=== PATIENT | female | born 1995 | race Caucasian/White ===

== ENCOUNTER 2022-12-25 17:35 | Emergency (ER) | payer OTHER ==
[2022-12-25 18:00] VITALS: BP 129/76
--- NOTE | 2022-12-25 18:00 | ED Physician Documentation ---
PD HPI HEENT - Stated complaint Stated Complaint: ALLERGIC REACTION/ FACE SWELLING - Chief complaint Chief Complaint: Heent - History obtained from History obtained from: Patient - Additional information Additional information: On and off for quite some time she has noticed a sour taste near the left mandible. This came back tonight while eating fast food but also noticed some swelling near the posterior left mandible. Its not particularly painful. PD PAST MEDICAL HISTORY - Present Medications Home Medications: Ambulatory Orders Medication Instructions Recorded Confirmed Citalopram [CeleXA] 12/25/22 - Allergies Allergies/Adverse Reactions: Allergies Allergy/AdvReac Type Severity Reaction Status Date / Time No Known Drug Allergies Allergy Verified 12/25/22 17:47 PD ED PE NORMAL - Vitals Vital signs reviewed: Yes - General General: Alert and oriented X 3, No acute distress - HEENT HEENT: PERRL, EOMI, Other (I do not feel any obvious swelling of the sublingual glands or anywhere else in the neck. Full range of motion of the jaw. No intraoral tenderness. Phonation is normal.) - Neuro Neuro: Alert and oriented X 3, Normal speech - Psych Psych: Normal mood, Normal affect Results - Vitals Vitals: Vital Signs - 24 hr 12/25/22 17:45 Temperature 36.4 C L Heart Rate 89 Respiratory 16 Rate Blood Pressure 129/76 O2 Saturation 99 Oxygen O2 Source Room air PD Medical Decision Making - ED course ED course: Given the location and the sour taste I suspect she has a recurrent salivary gland abnormality. Her prior physician told her to increase fluids which actually is not unreasonable and we will add lemon heads. ENT follow-up was advised. Departure - Departure Disposition: 01 Home, Self Care Clinical Impression: Salivary gland enlargement Condition: Good Record reviewed to determine appropriate education?: Yes Instructions: ED Sublingual Gland Swelling [facility] Comments: As discussed, reasonable to use lemon heads to increase saliva production, and drinking plenty of fluids as your prior physician mentioned. Return if worse, but given the recurrent nature of this issue, also reasonable to follow-up with an director [facility] services, the closest is in [place], call [phone] for an appointment. Forms: PCP List
== END 2022-12-25 18:13 | disposition home or self-care (01) ==
LOC: ED 17:35
DX: K11.1 Hypertrophy of salivary gland (principal)
CPT/HCPCS: 99281; 99283